=== PATIENT | female | born 1975 | race Caucasian/White ===

== ENCOUNTER 2016-06-20 07:34 | Outpatient (CLI) | payer MEDICAID, OTHER ==
[2016-06-20] MEDS ORDERED: IOPAMIDOL-300 100 ML VIAL IVP ONE (09:12)
== END 2016-06-20 07:35 | disposition home or self-care (01) ==
DX: K80.80 Other cholelithiasis without obstruction (principal); K76.0 Fatty (change of) liver, not elsewhere classified; K57.90 Diverticulosis of intestine, part unspecified, without perforation or abscess without bleeding
CPT/HCPCS: 74177; Q9967

== ENCOUNTER 2016-09-14 14:21 | Outpatient (CLI) | payer MEDICAID | END 2016-09-14 14:22 | disposition home or self-care (01) | DX: L03.012 Cellulitis of left finger (principal) ==

== ENCOUNTER 2017-07-02 14:30 | Outpatient (CLI) | payer MEDICAID | END 2017-07-02 14:45 | disposition home or self-care (01) | LOC: RT.N 14:30 | PROVIDERS: ATTEND Nurse Practitioner Gerontology | DX: R42 Dizziness and giddiness (principal) | CPT/HCPCS: 93005 ==

== ENCOUNTER 2017-07-02 15:07 | Outpatient (CLI) | payer BC, MEDICAID ==
[2017-07-02 18:47] LABS: BASOPHILS % (AUTO) 0.3 %; EOSINOPHILS # (AUTO) 0.2 10^3/uL (0.0-0.7); EOSINOPHILS % (AUTO) 1.9 %; HGB - HEMOGLOBIN 12.8 g/dL (12.0-16.0); LYMPHOCYTES # (AUTO) 2.5 10^3/uL (1.5-3.5); LYMPHOCYTES % (AUTO) 23.7 %; MEAN CORPUSCULAR HEMOGLOBIN 28.1 pg (27.0-31.0); MEAN CORPUSCULAR HGB CONC 32.3 g/dL (32.0-36.0); MEAN CORPUSCULAR VOLUME 86.9 fL (81.0-99.0); MEAN PLATELET VOLUME 7.7 fL (7.9-10.8); MONOCYTES # (AUTO) 0.5 10^3/uL (0.0-1.0); MONOCYTES % (AUTO) 4.7 %; NEUTROPHILS # (AUTO) 7.3 10^3/uL (1.5-6.6); NEUTROPHILS % (AUTO) 69.4 %; PLT - PLATELET COUNT 379 10^3/uL (130-450); RED BLOOD COUNT 4.56 10^6/uL (4.20-5.40); RED CELL DISTRIBUTION WIDTH 13.9 % (12.0-15.0); WHITE BLOOD COUNT 10.6 x10^3/uL (4.8-10.8)
[2017-07-02 19:05] LABS: ALBUMIN 3.9 g/dL (3.2-5.5); ALBUMIN/GLOBULIN RATIO 0.9 (1.0-2.2); ALKALINE PHOSPHATASE 78 IU/L (42-121); ALT ALANINE AMINOTRANSFERASE 83 IU/L (10-60); AST ASPARTATE AMINOTRANSFERASE 53 IU/L (10-42); BILIRUBIN,TOTAL 0.2 mg/dL (0.2-1.0); BUN - BLOOD UREA NITROGEN 11 mg/dL (6-20); CALCIUM 9.4 mg/dL (8.5-10.3); CARBON DIOXIDE - CO2 25 mmol/L (21-32); CHLORIDE 98 mmol/L (101-111); CHOL/HDL RATIO 3.2 (<4.4); CHOLESTEROL 141 mg/dL; CREATININE 0.5 mg/dL (0.4-1.0); GFR - MDRD 137 (>89); GLUCOSE 194 mg/dL (70-100); HDL CHOLESTEROL 44 mg/dL; LDL CHOLESTEROL,CALCULATED 85 mg/dL; LDL/HDL RATIO 1.9 (<4.4); SODIUM 135 mmol/L (135-145); TOTAL PROTEIN 8.1 g/dL (6.7-8.2); VLDL CHOLESTEROL 12 mg/dL
[2017-07-02 19:07] LABS: HB2 TOTAL 14.2 g/dL; HEMOGLOBIN A1C 1.04 g/dL; HEMOGLOBIN A1C % 8.9 % (4.6-6.2)
== END 2017-07-02 15:08 | disposition home or self-care (01) ==
LOC: LAB.N 15:07
PROVIDERS: ATTEND Nurse Practitioner Gerontology
DX: E11.9 Type 2 diabetes mellitus without complications (principal); Z13.9 Encounter for screening, unspecified
CPT/HCPCS: 36415; 80053; 80061; 83036; 83721; 84443; 85025

== ENCOUNTER 2017-08-02 08:02 | Outpatient (CLI) | payer MEDICAID ==
--- NOTE | 2017-08-03 18:36 | Mammography Report ---
DIGITAL SCREENING MAMMOGRAM: 08/02/2017 CLINICAL INDICATION: A 42-year-old with history of late childbearing for baseline. TECHNIQUE: Routine CC and MLO projections were obtained of the breasts. FINDINGS: The breasts demonstrate scattered fibroglandular densities bilaterally. Coarse, typically benign calcifications are present. No suspicious masses, clustered microcalcifications, or regions of architectural distortion are identified. IMPRESSION: BENIGN FINDINGS. RECOMMENDATION: Routine annual screening unless otherwise clinically indicated. BIRADS category 2, benign findings. STANDARD QUALIFYING STATEMENTS 1. This examination was reviewed with the aid of Computed-Aided Detection (CAD). 2. A negative or benign imaging report should not delay biopsy if clinically suspicious findings are present. Consider surgical consultation if warranted. More than 5% of cancers are not identified by imaging. 3. Dense breasts may obscure an underlying neoplasm. TD: 08/03/2017 18:35
== END 2017-08-02 08:03 | disposition home or self-care (01) ==
LOC: DI 08:02
PROVIDERS: ATTEND Nurse Practitioner Gerontology
DX: Z12.31 Encounter for screening mammogram for malignant neoplasm of breast (principal)
CPT/HCPCS: 77067

== ENCOUNTER 2017-08-26 08:06 | Outpatient (CLI) | payer MEDICAID ==
[2017-08-26 13:51] LABS: FOLLICLE STIMULATING HORMONE 7.95 mIU/mL; LUTEINIZING HORMONE 7.71 mIU/mL
== END 2017-08-26 08:07 | disposition home or self-care (01) ==
LOC: LAB.N 08:06
PROVIDERS: ATTEND Nurse Practitioner Gerontology
DX: N95.1 Menopausal and female climacteric states (principal)
CPT/HCPCS: 36415; 82670; 83001; 83002

== ENCOUNTER 2018-03-22 15:27 | Outpatient (CLI) | payer MEDICAID ==
--- NOTE | 2018-03-23 08:30 | XRAY Report ---
Reason: JOINT PAIN Procedure Date: 03/22/2018 Accession Number: [id number] / [id number] Procedure: XRN - Knee 3 View LT CPT Code: FULL RESULT: EXAM: LEFT KNEE RADIOGRAPHY EXAM DATE: 03/22/2018 03:47 PM. CLINICAL HISTORY: JOINT PAIN. COMPARISON: None. TECHNIQUE: 3 views. FINDINGS: Bones: No fractures or bone lesions. Joints: There are mild degenerative changes of the patellofemoral joint. Seen on the frontal view only is a 5 mm calcific density overlying the tibial spines, concerning for a possible loose body. Soft Tissues: Normal. No soft tissue swelling. IMPRESSION: Mild patellofemoral osteoarthritis. Possible loose body. RADIA
== END 2018-03-22 15:28 | disposition home or self-care (01) ==
LOC: DI.N 15:27
PROVIDERS: ATTEND Nurse Practitioner Gerontology
DX: M17.12 Unilateral primary osteoarthritis, left knee (principal)

== ENCOUNTER 2019-05-18 10:03 | Outpatient (CLI) | payer OTHER ==
[2019-05-18 10:17] LABS: HGB - HEMOGLOBIN 12.9 g/dL (12.0-16.0); MEAN CORPUSCULAR HEMOGLOBIN 28.7 pg (27.0-31.0); MEAN CORPUSCULAR VOLUME 89.8 fL (81.0-99.0); RED BLOOD COUNT 4.49 10^6/uL (4.20-5.40); RED CELL DISTRIBUTION WIDTH 13.8 % (12.0-15.0)
[2019-05-18 10:40] LABS: HEMOGLOBIN A1C 1.07 g/dL; HEMOGLOBIN A1C % 9.7 % (4.6-6.2)
== END 2019-05-18 10:04 | disposition home or self-care (01) ==
LOC: LAB 10:03
PROVIDERS: ATTEND Obstetrics & Gynecology
DX: E11.9 Type 2 diabetes mellitus without complications (principal); N92.6 Irregular menstruation, unspecified
CPT/HCPCS: 36415; 83036; 85027

== ENCOUNTER 2019-05-25 06:38 | Outpatient (CLI) | payer OTHER ==
--- NOTE | 2019-05-25 14:18 | Ultrasound Report ---
Reason: MENSTRUAL BLEEDING ABN Procedure Date: 05/25/2019 Accession Number: [id number] / [id number] Procedure: US - Pelvic w/Transvaginal CPT Code: Final Report FULL RESULT: EXAM: PELVIC ULTRASOUND EXAM DATE: 05/25/2019 07:30 AM. CLINICAL HISTORY: Abnormal menstrual bleeding. COMPARISON: PELVIC W/TRANSVAGINAL 06/03/2016 8:34 AM. TECHNIQUE: Realtime transabdominal pelvic scan performed to identify the uterus and adnexa and as an overview of other pelvic structures, followed by transvaginal scan to provide greater detail of the uterus and adnexa, with static image documentation. FINDINGS: Uterus: 10.1 x 4.9 x 4.9 cm, volume 127 cc. Retroverted position. Normal overall size and echotexture. Masses: 1. Posterior transmural lower uterine segment fibroid 3.1 x 2.8 x 3.1 cm. Enlarged from 2.3 cm previously. 2. Anterior intramural fibroid 0.8 x 0.8 x 0.7 cm. Not previously visualized. Endometrium: 12 mm. Normal. Cervix: Unremarkable. Right Ovary: 6.0 x 3.3 x 2.8 cm, volume 29 cc. Normal echotexture and blood flow. Left Ovary: 4.4 x 2.0 x 1.5 cm, volume 7 cc. Normal echotexture and blood flow. Free Fluid: None. Other: None. IMPRESSION: 1. Endometrium within normal limits. No masses or thickening. 2. Possible left adnexal solid nodule seen previously not identified currently. 3. Increase in size of now transmural posterior lower uterine segment fibroid from 2.3-3.1 cm. This has a small submucosal component and could be a source of abnormal bleeding. 4. New 0.7 cm intramural fibroid. RADIA
== END 2019-05-25 06:39 | disposition home or self-care (01) ==
LOC: DI 06:38
PROVIDERS: ATTEND Obstetrics & Gynecology
DX: N93.9 Abnormal uterine and vaginal bleeding, unspecified (principal); D25.1 Intramural leiomyoma of uterus
CPT/HCPCS: 76830; 76856

== ENCOUNTER 2019-08-03 10:10 | Outpatient (CLI) | payer OTHER ==
[2019-08-03 10:35] LABS: BASOPHILS % (AUTO) 0.3 %; EOSINOPHILS # (AUTO) 0.3 10^3/uL (0.0-0.7); EOSINOPHILS % (AUTO) 2.5 %; HGB - HEMOGLOBIN 13.2 g/dL (12.0-16.0); LYMPHOCYTES # (AUTO) 2.5 10^3/uL (1.5-3.5); LYMPHOCYTES % (AUTO) 24.4 %; MEAN CORPUSCULAR HEMOGLOBIN 27.8 pg (27.0-31.0); MEAN CORPUSCULAR VOLUME 86.9 fL (81.0-99.0); MEAN PLATELET VOLUME 8.9 fL (7.9-10.8); MONOCYTES # (AUTO) 0.5 10^3/uL (0.0-1.0); MONOCYTES % (AUTO) 4.5 %; NEUTROPHILS % (AUTO) 67.9 %; PLT - PLATELET COUNT 390 10^3/uL (130-450); RED BLOOD COUNT 4.74 10^6/uL (4.20-5.40); RED CELL DISTRIBUTION WIDTH 13.8 % (12.0-15.0); WHITE BLOOD COUNT 10.3 x10^3/uL (4.8-10.8)
[2019-08-03 10:50] LABS: ALBUMIN 4.2 g/dL (3.2-5.5); BILIRUBIN,TOTAL 0.6 mg/dL (0.2-1.0); CALCIUM 9.5 mg/dL (8.5-10.3); CREATININE 0.5 mg/dL (0.4-1.0); TOTAL PROTEIN 8.5 g/dL (6.7-8.2)
== END 2019-08-03 10:11 | disposition home or self-care (01) ==
LOC: LAB 10:10
PROVIDERS: ATTEND Obstetrics & Gynecology
DX: Z01.812 Encounter for preprocedural laboratory examination (principal); D25.9 Leiomyoma of uterus, unspecified; N93.9 Abnormal uterine and vaginal bleeding, unspecified
CPT/HCPCS: 36415; 80053; 85025

== ENCOUNTER 2019-08-07 07:19 | Outpatient (CLI) | payer OTHER | END 2019-08-07 07:20 | disposition home or self-care (01) | LOC: LAB 07:19 | PROVIDERS: ATTEND Obstetrics & Gynecology | DX: Z01.818 Encounter for other preprocedural examination (principal); D25.9 Leiomyoma of uterus, unspecified; N93.9 Abnormal uterine and vaginal bleeding, unspecified; E11.9 Type 2 diabetes mellitus without complications | CPT/HCPCS: 36415; 86850; 86900; 86901 ==

== ENCOUNTER 2019-08-09 08:51 | Day surgery (SDC) | payer OTHER ==
[2019-08-09] MEDS ORDERED: LACTATED RINGERS 1,000 ML IV ONE ×2 (09:36→19:07)
[2019-08-09] MEDS ORDERED: ceFAZolin 3 GM in SODIUM CHLORIDE 0.9% 100ML 100 ML IV ONE (10:00)
--- NOTE | 2019-08-09 10:32 | ANESTHESIA ---
Pre-Anesthesia VS, & Labs - Diagnosis uterine fibroids, abnormal menstrual bleeding - Procedure total laparoscopic hysterectomy Height 5 ft 7 in Weight (kg) 125 kg Body Mass Index 43.4 - NPO >8 hours - Is Patient ?: No - Lab Results Current Lab Results: Laboratory Tests 08/09/19 09:41: POC Whole Bld Glucose 169 H Hbb 13, Hct 41 HBA1c 9.7 Lab results reviewed: Yes Home Medications and Allergies Home Medications: Ambulatory Orders Amlodipine Besylate 10 mg PO DAILY 07/17/19 Ibuprofen 800 mg PO Q6HR PRN 07/17/19 Insulin NPH Hum/Reg Insulin Hm [Novolin 70-30 Flexpen] 80 unit SQ DAILY 07/17/19 Amlodipine Besylate 10 mg PO DAILY 07/17/19 Ibuprofen 800 mg PO Q6HR PRN 07/17/19 Insulin NPH Hum/Reg Insulin Hm [Novolin 70-30 Flexpen] 80 unit SQ DAILY 07/17/19 Allergies/Adverse Reactions: Allergies Allergy/AdvReac Type Severity Reaction Status Date / Time codeine AdvReac Nausea Verified 08/09/19 09:39 Anes History & Medical History - Anesthetic History Anesthesia Complications: reports: No previous complications - Medical History Cardiovascular: reports: Hypertension Pulmonary: reports: None Gastrointestinal: reports: Diverticulitis Urinary: reports: Incontinence Neuro: reports: None Musculoskeletal: reports: Osteoarthritis, Chronic back pain Endocrine/Autoimmune: reports: Type 2 diabetes (takes insulin, poorly controlled), Other (morbid obesity) Blood Disorders: reports: None Skin: reports: Eczema Smoking Status: Never smoker Psychosocial: reports: Cannabis (daily smoke and edibles) - Surgical History Eyes Ears Nose Throat (EENT): Tonsil/Adenoidectomy Gynecologic: section, Dilation and currettage, Tubal ligation Orthopedic: Arthroscopic surgery, Carpal Tunnel surgery, Other Results - EKG Results EKG Comparison: Reviewed EKG (poor R wave progression.) Exam General: Alert, Oriented x3, Cooperative, No acute distress Dental: Poor dentition Mouth Openin Fingerbreadth Neck Mobility: Normal Mallampati classification: IV Thyromental Distance: greater than 6 cm Respiratory: Lungs clear, Normal breath sounds, No respiratory distress, No accessory muscle use Cardiovascular: Regular rate, Normal S1, Normal S2, No murmurs Mental/Cognitive Status: Alert/Oriented X3, Normal for patient Plan Anesthesia Type: General Consent for Procedure(s) Verified and Reviewed: Yes Code Status: Attempt Resuscitation ASA classification: 3-Severe systemic disease Is this case an emergency?: No
[2019-08-09] MEDS ORDERED: LIDOCAINE 1%-EPI 1:100000 20 ML MDV ONE (11:30)
[2019-08-09] MEDS ORDERED: BUPIVACAINE 0.25% PF 30 ML VIAL ONE (11:31)
[2019-08-09] MEDS ORDERED: METHYLENE BLUE 0.5% 50 MG/10 ML AMPULE ONE (11:31)
[2019-08-09] MEDS ORDERED: CELECOXIB 100 MG CAPSULE PO ONE (14:22)
[2019-08-09] MEDS ORDERED: GABAPENTIN 400 MG CAPSULE ONE (14:23)
[2019-08-09] MEDS ORDERED: ACETAMINOPHEN 1,000 MG/100 ML 100 ML IV ONE (14:23)
[2019-08-09] MEDS ORDERED: LIDOCAINE 1%-EPI 1:100000 30 ML MDV SUBQ ONE (15:24)
[2019-08-09] MEDS ORDERED: BUPIVACAINE 0.25% PF 30 ML VIAL SUBQ ONE (15:24)
[2019-08-09] MEDS ORDERED: SUGAMMADEX 500 MG/5 ML VIAL IVP ONE ×2 (18:17→18:18)
[2019-08-09] MEDS: HYDROmorphone 1 MG/ML CARPUJECT ONE ×5 (19:16→19:51)
[2019-08-09] MEDS ORDERED: ONDANSETRON 4 MG/2 ML VIAL IVP PRN (19:16)
--- NOTE | 2019-08-09 19:27 | OPERATIVE REPORT ---
Operative Report - General Procedure Date: 08/09/19 Planned Procedure: TLH with BS and cysto Pre-Op Diagnosis: fobroid uterus Procedure Performed: TLH BS cysto Post Op Diagnosis: Same - Procedure Note Primary Surgeon: Tyree Flores MD Secondary Surgeon: Ewa Antoine Anesthesia Provider: Dagmar Ellington Anesthesia Technique: General ET tube Pathology: uterus and tubes IV Fluids (mL): 1,400 Estimated Blood Loss (mL): 150 Urine Output (mL): 200 Findings: enlarged uterus Complications: Stitch in bladder clipped Indostich failure
[2019-08-09] MEDS ORDERED: HYDROmorphone 1 MG/ML CARPUJECT ONE (19:37)
[2019-08-09] MEDS ORDERED: KETOROLAC 15 MG/ML VIAL ONE (19:38)
--- NOTE | 2019-08-09 20:02 | ANESTHESIA POST OP EVALUATION ---
Anesthesia Post Eval - Post Anesthesia Eval CV Function Including HR & BP: positive: Stable Pain Control: positive: Additional Therapies Ordered (Patient c/o severe 8/10 pain to right bicepts. Patient has full range of motion of hands wrist and fingers. Flexion at the elbow due to pain. Patients arms were tucked during the surgical case. Dr. Flores to order xray and ortho consult.) Nausea & Vomiting: positive: Negative Mental Status: positive: Appropriate Anesthesia Complications: positive: None
[2019-08-09] MEDS ORDERED: HYDROmorphone 0.5 MG/0.5 ML SYRINGE ONE (20:11)
--- NOTE | 2019-08-09 20:23 | CONSULTATION NOTE ---
Referring Provider Name of Referring Provider:: Dr. Tyree Flores Consult Date: 08/09/19 Chief Complaint - Chief Complaint Chief Complaint: Fibroids History of Present Illness - Admitted From Admitted From:: Home - History Obtained From Records Reviewed: Yes History obtained from: Patient, [employer] - History of Present Illness HPI Comment/Other: This is a 44-year-old female with a past medical history significant for hypertension and type 2 diabetes mellitus who presents today for a total laparoscopic hysterectomy with bilateral salpingectomy. The patient reports she has had significant vaginal bleeding attributed to fibroids and she is scheduled for hysterectomy today. She ended up undergoing a total laparoscopic hysterectomy with bilateral salpingectomy, cystoscopy and clipping of stitch in the bladder with Dr. Tyree Flores. Medicine was consulted postoperatively to help manage her diabetes. The patient states she was diagnosed with type 2 diabetes back in 2014. She currently takes 70/30 insulin twice daily. She takes 80 units in the morning and 60 units in the evening. She reports her last A1c was 9.7% in May. She follows with [facility]. She has been more compliant with a carb controlled diet recently. She is being followed closely on outpatient basis with adjustment in her insulin and she is happy that her A1c has improved from over 12% when she was diagnosed. Today she is also complaining of right elbow pain that she noticed postoperatively. The elbow is nontender but she has pain with movement and the pain radiates up to her shoulder. History - Past Medical History Cardiovascular: reports: Hypertension Respiratory: reports: None Neuro: reports: None Endocrine/Autoimmune: reports: Type 2 diabetes (takes insulin, poorly controlled), Other (morbid obesity) GI: reports: Diverticulitis : reports: Incontinence HEENT: reports: None Psych: reports: Claustrophobia Musculoskeletal: reports: Osteoarthritis, Chronic back pain Derm: reports: Eczema MRSA Hx?: No - Past Surgical History Ortho: reports: Arthroscopic surgery, Carpal Tunnel surgery, Other /FIELD TECHNICAL ASSISTANT: reports: section, Dilation and currettage, Tubal ligation HEENT: reports: Tonsil/Adenoidectomy - Family & Social History Family History Comment/Other: Reports her grandfather on her mother side also had type 2 diabetes Living arrangement: At home Living Situation: With family Social History Notes: Lives at home with her mother and daughter. She no longer smokes after quitting 5 years ago. Drinks alcohol on a social basis. Smokes marijuana on a daily basis - Substance History Use: Uses substance without health or social issues: Alcohol, Cannabis Meds/Allgy - Home Medications Home Medications: Ambulatory Orders Medication Instructions Recorded Confirmed Amlodipine Besylate 10 mg PO DAILY 07/17/19 08/09/19 Ibuprofen 800 mg PO Q6HR PRN 07/17/19 08/09/19 Insulin NPH Hum/Reg Insulin Hm 80 unit SQ DAILY 07/17/19 08/09/19 [Novolin 70-30 Flexpen] - Allergies Allergies/Adverse Reactions: Allergies Allergy/AdvReac Type Severity Reaction Status Date / Time codeine AdvReac Nausea Verified 08/09/19 09:39 Review of Systems - Constitutional Constitutional: denies: Fatigue, Chills, Poor appetite - Cardiovascular Cariovascular: denies: Chest pain - Respiratory Respiratory: denies: SOB at rest, SOB with exertion - Gastrointestinal Gastrointestinal: reports: Abdominal pain, Change in bowel habits. denies: Nausea, Vomiting, Poor appetite - Musculoskeletal Musculoskeletal: reports: Limited range of motion. denies: Muscle weakness - Neurological Neurological: denies: General weakness, Focal weakness - All Other Systems All Other Systems: reports: Reviewed and negative Exam - Vital Signs Reviewed Vital Signs: Yes Vital Signs: Vital Signs x48h Temp Pulse Resp BP Pulse Ox 08/09/19 20:00 37.1 C 105 H 18 122/73 98 08/09/19 19:45 37.1 C 107 H 17 130/81 H 99 08/09/19 19:30 101 H 18 130/81 H 95 08/09/19 19:25 36.8 C 104 H 18 130/79 99 08/09/19 19:20 36.7 C 105 H 16 124/75 100 08/09/19 19:15 36.7 C 99 18 121/81 H 99 08/09/19 19:12 36.1 C L 101 H 18 136/71 H 100 - Physical Exam General Appearance: positive: No acute distress, Alert Eyes Bilateral: positive: Normal inspection, No lid inflammation ENT: positive: ENT inspection nml Neck: positive: Nml inspection Respiratory: positive: No respiratory distress. negative: Wheezes, Rales, Rhonchi Cardiovascular: positive: No murmur, Tachycardia. negative: Bradycardia, Systolic murmur Abdomen: positive: Non-tender, No distention, Tenderness (Mild tenderness over the right side of the abdomen.), Other (Incisional sites appear clean and dry.) Skin: positive: No rash, Warm, Dry Extremities: positive: No pedal edema, Other (She has limited range of motion of the right elbow secondary to pain. The elbow is nontender to palpation. There is no erythema or edema of the right upper extremity.) Neurologic/Psychiatric: positive: Oriented x3. negative: Disoriented to person, Disoriented to place, Disoriented to time Conclusion/Plan - Diagnosis Diagnosis: 1) Type 2 diabetes mellitus, insulin-dependent. 2) Right elbow pain. 3) Hypertension. 4) Urine fibroids status post total laparoscopic hysterectomy - Plan Plan: Her glucose is elevated at 233. She is due for her evening dose of insulin 70/30 and so we will resume this. She will be given 60 units this evening as she takes at home. We will also resume her morning dose of 80 units. Once she is taking a diet, recommend starting her on a carb controlled diet. She is currently normotensive and recommend holding her amlodipine today. This can be resumed tomorrow. With regards to her right elbow pain, given this occurred postoperatively, suspect is likely a musculoskeletal injury secondary to placement of the extremity during the operation. 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 Her pain should be controlled with the Toradol and oxycodone she has ordered
[2019-08-09] MEDS ORDERED: INSULIN ASPART 300 UNIT/3 ML PEN SUBQ SCH (21:00)
--- NOTE | 2019-08-09 21:17 | OPERATIVE REPORT ---
DATE OF SERVICE: 08/09/2019 Physician: Tyree Flores MD PREOPERATIVE DIAGNOSIS: Fibroid uterus. POSTOPERATIVE DIAGNOSES: Fibroid uterus. PROCEDURE: Total laparoscopic hysterectomy with bilateral salpingectomy, cystoscopy and clipping of stitch in bladder. SURGEON: Tyree Flores MD JOB PLACEMENT OFFICER: Suzi Antoine MD ANESTHESIA PROVIDER: Dagmar Barbour CRNA ANESTHETIC: General via endotracheal tube. FINDINGS: Upon entering the abdominal cavity, there was evidence of the left descending colon being adhered to the left pelvic sidewall. This limited some of the visibility. The uterus was enlarged in nature. There was what appeared to be a corpus luteum cyst on the right ovary. Patient was obese, leading to some of the difficulty performing procedure. Following adequate general anesthesia, the patient was placed in the dorsal lithotomy position in [facility]. PROCEDURE IN DETAIL: At this point, she was prepped and draped in the usual fashion. A timeout was performed, in which concerns were addressed. A speculum was placed in the vagina. The cervix was visualized, grasped with a single- tooth tenaculum and was dilated up to 8 mm and then a uterus was sounded to 8 cm. At this point, a tie sawyer uterine manipulator was placed under direct visualization. The distal and proximal balloons were then inflated. At this point, the metal pickling equipment operator's gloves were changed and a stab wound was made in the subumbilical region with a #11 blade following local anesthesia with 0.25% Marcaine with 1% lidocaine and epinephrine. Then, a videoscope with a 15 cm trocar was placed under direct visualization. Incisions were placed, both on the left and right lower quadrants following local anesthesia with 0.25% Marcaine with epinephrine and then two 5 mm trocars were placed under direct visualization. The pelvis was inspected with the aforementioned findings. The adhesions were taken down on the left hand side. At this point, the right fallopian tube was grasped and the mesosalpinx was cauterized and divided, utilizing the LigaSure. This was carried all the way to the cornu and then the uteroovarian ligament was cauterized and transected as well as the round ligament. The anterior leaf of the broad ligament was then opened, and this was carried down across the lower uterine segment. The bladder was dissected free. The posterior leaf of the broad ligament was also cauterized and transected with LigaSure. The uterine vessels were visualized, cauterized and transected. Care was taken to place this as close to the uterus was possible. The bowel adhesions in the left hand side was taken down utilizing blunt dissection as well as cold cautery to decrease the risk of bowel injury. The left fallopian tube was grasped and the mesosalpinx was cauterized and transected with LigaSure. This was carried all the way to the cornu. Then, the round ligament was cauterized, transected, and then the uteroovarian ligament was cauterized and transected. The anterior leaf of the broad ligament was opened and this came into contact with the bladder flap, which previously was cauterized. At this point, the uterine vessels on the left hand side were cauterized and transected. The tie sawyer was able to be palpated through the vagina at the lower uterine segment. Harmonic scalpel was then used to amputate the uterus from the apex of the vagina without difficulty. The uterus was then delivered through the vagina and then an Asepto bulb was placed in the vagina to maintain pneumoperitoneum. The right lower quadrant incision was extended to accommodate an 11 mm port and then an Endostitch was used to close the apex of the vagina. Two sutures were utilized, at which point the needle fractured. This was visualized and then the stitch was clipped after only 2 stitches were placed. The sutures were removed. The portion of the needle was noted to reside in the Endostitch. There was what appears to be a 0.5 x 2 mm segment that was unascertained. Careful searching of the pelvis did not show this remnant at any point. At this point an x-ray was obtained and there was no visualization of the segment. A 0 V-Loc suture was then used to close the apex of the vagina in its entirety. At this point, cystoscopy was performed and then a stitch was noted in the bladder, utilizing a hysteroscope and Myosure lite. This was transected and pulled back through the bladder mucosa. The right lower quadrant incision was closed utilizing a single 0 Vicryl stitch utilizing a Anuj- Allen. The incisions were all closed with 4-0 Monocryl subcuticular and then dressed with Dermabond. Patient tolerated the procedure well and was taken to recovery in stable condition. The incident was explained to patient's family. We are obtaining an x-ray in radiology because it is high-grade to see if there is any needle remaining. Dr. Antoine aided extensively in dissection, cautery as well as mobilization during the procedure. Her assistance was invaluable during this case. TD: 08/09/2019 19:40 [place]
[2019-08-09] MEDS ORDERED: INSULIN 70/30 HUMAN 300 UNIT/3 ML VIAL SUBQ SCH (21:24)
[2019-08-09] MEDS: oxyCODONE 5 MG TABLET PO PRN (21:59)
[2019-08-10] MEDS: KETOROLAC 30 MG/ML VIAL IVP PRN ×2 (01:06→07:44)
[2019-08-10] MEDS: oxyCODONE 5 MG TABLET PO PRN ×2 (02:40→07:52)
--- NOTE | 2019-08-10 07:09 | PROVIDER PROGRESS NOTE ---
Subjective - Prog Note Date Prog Note Date: 08/10/19 Prog Note Time: 07:06 - Subjective Pt reports feeling: No change ( right dominant upper extremity pain, initially at the elbow and now centered mainly over the superior shoulder. Has fair shoulder motion with mild pain. Mainly complains of generalized tenderness. No distal weakness/numbness. No prior shoulder problems.) Objective - Vital Signs/Intake & Output Vital Signs: Vital Signs x48h Temp Pulse Resp BP Pulse Ox 08/10/19 05:50 37.5 C 97 16 106/68 95 08/10/19 02:53 95 08/09/19 23:45 37.0 C 101 H 18 120/74 95 Intake & Output: Intake & Output 08/07/19 08/08/19 08/09/19 08/10/19 23:59 23:59 23:59 23:59 Intake Total 1800 400 Output Total 400 625 Balance 1400 -225 - Lab Results Other Labs: Lab Results x24hrs 08/09/19 08/09/19 08/09/19 Range/Units 21:22 19:32 16:06 POC Whole Bld Glucose 262 H 233 H 123 H (70 - 100) mg/dL 08/09/19 Range/Units 09:41 POC Whole Bld Glucose 169 H (70 - 100) mg/dL - Diagnostic Imaging Diagnostic Imaging Comments: XR show no acute fracture/dislocation - Other Results/Comments Other Results/Comments: EXAM: Right elbow: nontender, no swelling/redness. Good ROM with mild pain. No instability. N/V ok distally. Right shoulder: Generalized tenderness; maximal tenderness over superior shoulder ?AC joint. Mild pain with passive and active shoulder ROM in FF/ER/IR. Some pain with resisted abduction and ER. Assessment/Plan - Problem List (1) Shoulder pain, right Impression: pain likely due to positional stress during surgery. No neurologic involvement. Likely either musculoskeletal strain or mild strain to acrioclavicular joint. No fracture seen PLAN: Treat symptomatically with heat or ice locally, sling as needed, analgesics. Should improve in 5-7 days. If still problematic, follow up with PCP for reevaluation. Qualifiers: Chronicity: acute Qualified Code(s): M25.511 - Pain in right shoulder
[2019-08-10 07:27] VITALS: BP 115/67
[2019-08-10] MEDS ORDERED: INSULIN ASPART 300 UNIT/3 ML PEN SUBQ SCH (08:00)
[2019-08-10] MEDS: INSULIN 70/30 HUMAN 300 UNIT/3 ML VIAL SUBQ SCH ×2 (08:05→08:14)
--- NOTE | 2019-08-10 08:10 | CONSULTATION NOTE ---
Consultation Report: This patient has laparoscopic hysterectomy yesterday and was in the OR for about 4-5 hours. She has been complaining of pain in her right elbow/shoulder. Dr Hunt has seen her and has made some recommendations for ice pack and a sling. See Dr. Hunt's note. I saw the patient this morning and reinforced Dr. Hunt's recommendation and also suggested that she can use an OTC lidocain patch if the pain is not under control with ice pack/sling and po pain meds. The patient is discharging today. I requested the nurse to reinforce the recommendation before the patient leaves today.
--- NOTE | 2019-08-10 09:12 | CONSULTATION NOTE ---
DATE OF SERVICE: 08/10/2019 Physician: Victoriano Hunt MD REFERRING PHYSICIAN: Dr. Tyree Flores of the [employer] service. REASON FOR CONSULTATION: Evaluation of the patient's right dominant shoulder/elbow pain. HISTORY OF PRESENT ILLNESS: Patient is a 44-year-old female who was admitted to the [facility] on 08/09/2019 where she underwent a hysterectomy. Postoperatively, in the recovery room she is co mplaining of generalized right dominant elbow and shoulder pain. We have been asked to evaluate this . She apparently had her arms tucked under her right side during the positioning on the operating ro om table during the course of her procedure. The procedure was approximately 4 hours in length of he r hysterectomy. She denies having any shoulder or upper extremity problems in the past. Denies any actual distal weakness or numbness at this point. Initially, she had elbow and shoulder pain, but by the time I saw her, she was complaining primarily of the superior right shoulder pain. PHYSICAL EXAMINATION: Patient had no generalized swelling or redness around the right upper extremit y. Examination of the right elbow showed no swelling or redness either. No gross instability of the elbow joint. Elbow range of motion today without much discomfort. Neurovascular appears to be inta ct distally in the hand and fingers. Right shoulder exam again showed no discoloration, redness or significant swelling. She had generali zed tenderness around the shoulder on palpation with maximal tenderness being over the superior aspec t of the shoulder. No focal tenderness in this region, however. She actually had good range of deven on passively and actively with forward flexion, external rotation, internal rotation in the shoulder. Did have some pain with resisted external rotation and abduction of the shoulder. Again, neurovasc ular to be intact distally. X-RAYS: X-rays that were taken, show no obvious fractures or dislocations about the shoulder or toshia betzy. ASSESSMENT: Probable mild musculoskeletal strain to the right shoulder secondary to positioning duri ng her recent [employer] surgery, possibility of there being a very mild right dominant acromioclavicular [place] int sprain as well. PLAN: Would just treat patient symptomatically at this point. Ice or heat to the local area along w ith a sling when she is upright and ambulatory. This will probably be necessary for 3-4 days. Mild analgesics as well. If she continues to have symptoms beyond 5-7 days, then followup with her primar y care physician may be warranted. TD: 08/10/2019 08:46
--- NOTE | 2019-08-10 09:14 | XRAY Report ---
Reason: right upper arm pain Procedure Date: 08/09/2019 Accession Number: [id number] / [id number] Procedure: XR - Humerus RT CPT Code: Final Report FULL RESULT: EXAM: RIGHT HUMERUS RADIOGRAPHY EXAM DATE: 08/09/2019 08:37 PM. CLINICAL HISTORY: Right upper arm pain. COMPARISON: None. TECHNIQUE: 2 views. Some clothing artifact. FINDINGS: Bones: Normal. No fractures or bone lesions. Joints: Normal. No effusions or subluxations in the visualized shoulder or elbow joints. Soft Tissues: Normal. No soft tissue swelling. IMPRESSION: No osseous abnormality. RADIA
--- NOTE | 2019-08-10 09:16 | XRAY Report ---
Reason: pOSSIBLE RETAINED .5X2 MM FORIGN BODY IN THE PELVI Procedure Date: 08/09/2019 Accession Number: [id number] / [id number] Procedure: XR - Abdomen 1 View X-Ray CPT Code: 83369 Final Report FULL RESULT: EXAM: ABDOMEN RADIOGRAPHY EXAM DATE: 08/09/2019 08:31 PM. CLINICAL HISTORY: POSSIBLE RETAINED .5X2 MM FOREIGN BODY IN THE PELVIS. COMPARISON: None. TECHNIQUE: 1 view. FINDINGS: Bowel Gas Pattern: Within normal limits. No dilated loops. Other: No radiopaque foreign body demonstrated. IMPRESSION: Normal 1-view abdomen x-ray. [facility]
--- NOTE | 2019-08-10 10:41 | XRAY Report ---
Reason: Rule out forign body Procedure Date: 08/10/2019 Accession Number: [id number] / [id number] Procedure: XR - Abdomen 1 View X-Ray CPT Code: 23570 Final Report FULL RESULT: EXAM: ABDOMEN RADIOGRAPHY EXAM DATE: 08/10/2019 09:40 AM. CLINICAL HISTORY: Rule out foreign body. Potential suture failure at vaginal cuff. COMPARISON: ABDOMEN 1 VIEW 08/09/2019 8:31 PM. TECHNIQUE: 1 view. FINDINGS: Bowel Gas Pattern: Within normal limits. No dilated loops. Other: No convincing radiopaque foreign body is identified. IMPRESSION: No convincing radiopaque foreign body. [facility]
== END 2019-08-10 10:53 | disposition home or self-care (01) ==
LOC: SDS 08:51 → MS2 17:52 → SDS 08-10 10:53
PROVIDERS: ATTEND Obstetrics & Gynecology
PROC: 0UT74ZZ Resection of Bilateral Fallopian Tubes, Percutaneous Endoscopic Approach (ICD-10-PCS; 2019-08-09)
PROC: 0UT94ZZ Resection of Uterus, Percutaneous Endoscopic Approach (ICD-10-PCS; principal; 2019-08-09 10:45)
DX: D25.1 Intramural leiomyoma of uterus (principal); N99.71 Accidental puncture and laceration of a genitourinary system organ or structure during a genitourinary system procedure; Y83.6 Removal of other organ (partial) (total) as the cause of abnormal reaction of the patient, or of later complication, without mention of misadventure at the time of the procedure; Y92.234 Operating room of hospital as the place of occurrence of the external cause; N73.6 Female pelvic peritoneal adhesions (postinfective); E66.01 Morbid (severe) obesity due to excess calories; M25.511 Pain in right shoulder; M25.521 Pain in right elbow; E11.65 Type 2 diabetes mellitus with hyperglycemia; I10 Essential (primary) hypertension; Z79.4 Long term (current) use of insulin; Z98.51 Tubal ligation status; Z87.891 Personal history of nicotine dependence; Z79.899 Other long term (current) drug therapy; Z68.41 Body mass index [BMI] 40.0-44.9, adult
CPT/HCPCS: 58571; 73060; 74018; 93005; A9270; J0131; J1170; J1815; J7120; 81025

== ENCOUNTER 2019-11-28 14:36 | Outpatient (CLI) | payer OTHER | END 2019-11-28 23:59 | disposition home or self-care (01) | LOC: LAB.R 14:36 | PROVIDERS: ATTEND Physician Assistant Medical | DX: R68.83 Chills (without fever) (principal); Z20.828 Contact with and (suspected) exposure to other viral communicable diseases | CPT/HCPCS: 81599 ==